=== PATIENT | female | born 1970 | race Caucasian/White ===

== ENCOUNTER 2016-05-05 15:14 | Emergency (ER) | payer MEDICARE, OTHER ==
[2016-05-05 15:34] VITALS: RESP 20
--- NOTE | 2016-05-05 15:52 | ED ---
General Adult HPI - General Chief complaint: Fall Stated complaint: Fall - Rib Pain Time Seen by Provider: 05/05/16 15:42 Source: patient, RN notes reviewed Mode of arrival: ambulatory Limitations: no limitations - History of Present Illness Initial comments: This is a 45-year-old female who presents today with left-sided rib pain after a fall yesterday. Patient states she has epilepsy and had an episode of a drop seizure. Patient states she landed on the left side ribs but denies any head injury or loss of consciousness. Patient is denying any headache, nausea/ vomiting/visual changes since the fall. Patient states she was concerned for rib fracture as she has a history of rib fracture. Patient states the pain is worse with taking a deep breath and with coughing or sneezing. Patient states she is having some shortness of breath. Patient denies any recent fever, chills , chest pain, abdominal pain, diarrhea, back pain, numbness, tingling, hematuria, or visual changes, or any other complaints. - Related Data Home Medications Medication Instructions Recorded Confirmed Beclomethasone Dipropionate [Qvar 1 puff INHALATION RT-BID PRN 03/29/15 07/01/15 80 mcg/puff] Diazepam [Valium] 10 mg PO BID PRN 03/29/15 07/01/15 Hydrocodone/Acetaminophen [[place] 1 tab PO Q6HR PRN 03/29/15 07/01/15 5-325] lamoTRIgine [LaMICtal] 200 mg PO BID 03/29/15 07/01/15 Previous Rx's Medication Instructions Recorded Zonisamide [Zonegran] 300 mg PO HS #30 cap 03/31/15 lamoTRIgine [LaMICtal] 25 mg PO BID #60 tab 03/31/15 Allergies Allergy/AdvReac Type Severity Reaction Status Date / Time albuterol Allergy Rapid Verified 07/01/15 14:30 Heart Rate carbamazepine [From Tegretol] Allergy Rash/Hives Verified 07/01/15 14:30 gabapentin [From Neurontin] Allergy Unknown Verified 07/01/15 14:30 lacosamide [From Vimpat] Allergy Unknown Verified 07/01/15 14:30 levetiracetam [From Keppra] Allergy Hallucinati Verified 07/01/15 14:30 ons phenobarbital Allergy Rash/Hives Verified 07/01/15 14:30 phenytoin Allergy Rash/Hives Verified 07/01/15 14:30 Review of Systems ROS Statement: Those systems with pertinent positive or pertinent negative responses have been documented in the HPI. ROS Other: All systems not noted in ROS Statement are negative. Past Medical History Past Medical History: Asthma, Seizure Disorder Additional Past Medical History / Comment(s): pneumothorax, MIGRAINES History of Any Multi-Drug Resistant Organisms: None Reported Past Surgical History: Orthopedic Surgery Additional Past Surgical History / Comment(s): chest tube, Oroth surgery on Left kneee two times. Past Psychological History: No Psychological Hx Reported Smoking Status: Former smoker Past Alcohol Use History: None Reported Past Drug Use History: None Reported - Past Family History Brother(s) Additional Family Medical History / Comment(s): cystic fibrosis , at 14 years old General Exam - General Exam Comments Initial Comments: General: The patient is awake and alert, in no distress, and does not appear acutely ill. Neck: The neck is supple, there is no tenderness or JVD. Cardiovascular: There is a regular rate and rhythm. No murmur, rub or gallop is appreciated. Respiratory: Lungs are clear to auscultation, respirations are non-labored, breath sounds are equal. No wheezes, stridor, rales, or rhonchi. Musculoskeletal: Full range of motion, strength 5/5 and Sensation intact. Radial pulses 2+ bilaterally. Neurological: A&O x 3. CN II-XII intact, There are no obvious motor or sensory deficits. Coordination appears grossly intact. Speech is normal. Skin: No ecchymosis noted to the left side ribs. Skin is warm and dry and no rashes or lesions are noted. Psychiatric: Normal mood and affect. Limitations: no limitations Course Vital Signs 05/05/16 15:32 Temperature 97.7 F Pulse Rate 95 Respiratory 20 Rate Blood Pressure 138/76 O2 Sat by Pulse 99 Oximetry Medical Decision Making - Medical Decision Making This is a 45 year old female presents with left-sided rib pain after a fall yesterday. On physical exam lungs are clear to auscultation, breath sounds are equal and nonlabored. Patient is afebrile in the EC, pulse rate 95, respiratory rate 20 and O2 sats are 99%. X-ray's of the left side ribs and chest were done and reviewed showing: #1 normal left ribs. #2 normal chest. Report read by Dr. Penn. Discussed the results with patient. Discussed that the ribs most likely bruised. I discussed the importance of continued deep breaths to prevent any pneumonia or infection. Discussed that patient could receive a short course of norco for pain but patient refused this stating she has ibuprofen at home that will work. Discussed ice to the area. Patient requested an Praveen wrap for a little bit of compression to the ribs. I discussed return parameters. I discussed the patient should follow with PCP in one to 2 days or return to the EC for any worsening symptoms or for any further concerns. Patient and who was also present in the room were receptive to this plan patient will be discharged home. Disposition Clinical Impression: Contusion of rib on left side Disposition: HOME SELF-CARE Condition: Good Instructions: Rib Contusion (ED) Additional Instructions: Please ice the area. Please use [id number] Tylenol and/or Motrin as needed for any pain. Please continue to take deep breaths to prevent any pneumonia. Please follow-up with family doctor in the next 2 days of symptoms have not improved. Please return to emergency room if the symptoms increase or worsen or for any other concerns. Referrals: Cresencio Murillo DO [Primary Care Provider] - 1-2 days Time of Disposition: 16:35
--- NOTE | 2016-05-05 16:14 | XR ---
EXAMINATION TYPE: XR ribs LT w pa chest xray DATE OF EXAM: 05/05/2016 4:07 PM COMPARISON: Chest x-ray 03/29/2015 HISTORY: Pain TECHNIQUE: Frontal chest and 2 views left RIBS FINDINGS: No acute fractures are evident. No pneumothorax is evident. IMPRESSION: 1. Normal left ribs. 2. Normal chest
[2016-05-05 16:39] VITALS: BP 138/78; PULSE 84; TEMP 98.2
== END 2016-05-05 16:39 | disposition home or self-care (01) ==
LOC: EC 15:14
DX: S20.212A Contusion of left front wall of thorax, initial encounter (principal); W19.XXXA Unspecified fall, initial encounter; G40.909 Epilepsy, unspecified, not intractable, without status epilepticus; J45.909 Unspecified asthma, uncomplicated; G43.909 Migraine, unspecified, not intractable, without status migrainosus; Z79.899 Other long term (current) drug therapy; Z88.8 Allergy status to other drugs, medicaments and biological substances; Z87.891 Personal history of nicotine dependence
CPT/HCPCS: 99284

== ENCOUNTER 2016-06-29 18:39 | Emergency (ER) | payer OTHER ==
--- NOTE | 2016-06-29 19:14 | ED ---
General Adult HPI - General Chief complaint: Head Injury Stated complaint: Fall Time Seen by Provider: 06/29/16 19:03 Source: patient, family, RN notes reviewed, old records reviewed Mode of arrival: wheelchair Limitations: no limitations - History of Present Illness Initial comments: Chief complaint history of present illness a 46-year-old female with a history of seizures. 3 nights ago she slipped and fell bumping the back of her head. Her significant other states that she was probably unconscious for approximately 1 minute nausea since then but no vomiting. No seizure activity. Mild dizziness when she stands. - Related Data Home Medications Medication Instructions Recorded Confirmed Diazepam [Valium] 10 mg PO DAILY PRN 03/29/15 06/29/16 lamoTRIgine [LaMICtal] 200 mg PO BID 03/29/15 06/29/16 Aspirin/Acetaminophen/Caffeine 1 - 2 tab PO DAILY PRN 06/29/16 06/29/16 [Excedrin Migraine Caplet] Brivaracetam [Briviact] 25 mg PO HS 06/29/16 06/29/16 Zonisamide [Zonegran] 200 mg PO BID 06/29/16 06/29/16 Previous Rx's Medication Instructions Recorded Ondansetron Odt [Zofran ODT] 4 mg PO Q8HR PRN #5 tab 06/29/16 Allergies Allergy/AdvReac Type Severity Reaction Status Date / Time albuterol Allergy Rapid Verified 06/29/16 19:36 Heart Rate carbamazepine [From Tegretol] Allergy Rash/Hives Verified 06/29/16 19:36 gabapentin [From Neurontin] Allergy Unknown Verified 06/29/16 19:36 lacosamide [From Vimpat] Allergy Unknown Verified 06/29/16 19:36 levetiracetam [From Keppra] Allergy Hallucinati Verified 06/29/16 19:36 ons phenobarbital Allergy Rash/Hives Verified 06/29/16 19:36 phenytoin Allergy Rash/Hives Verified 06/29/16 19:36 Review of Systems ROS Statement: Those systems with pertinent positive or pertinent negative responses have been documented in the HPI. Review of systems. Minimal to mild headache. No visual acuity changes mild nausea when she moves too quickly. No vomiting. No fever. No neck pain. No chest pain shortness breath GI/ problems no neuro deficits. All systems were otherwise reviewed. Past medical problems asthma, seizure disorder, previous pneumothorax. Surgeries knee arthroscopy, chest tube. Family history none, no cancers. Patient denies smoking denies drinking. She has ALLERGIES to albuterol, carbamazepine, gabapentin, glucose of mild. Keppra, phenobarbital and phenytoin. ROS Other: All systems not noted in ROS Statement are negative. Past Medical History Past Medical History: Asthma, Seizure Disorder Additional Past Medical History / Comment(s): pneumothorax, MIGRAINES, uterine fibroids History of Any Multi-Drug Resistant Organisms: None Reported Past Surgical History: Orthopedic Surgery Additional Past Surgical History / Comment(s): chest tube, Oroth surgery on Left kneee two times. Past Psychological History: No Psychological Hx Reported Smoking Status: Former smoker Past Alcohol Use History: None Reported Past Drug Use History: None Reported - Past Family History Brother(s) Additional Family Medical History / Comment(s): cystic fibrosis , at 14 years old General Exam - General Exam Comments Initial Comments: General: The patient is awake and alert, in no distress, and does not appear acutely ill. Complains of mild nausea. She did bump her head 3 nights ago. Mild dizziness. Typical postconcussion type complaints. Vital signs show temperature 97.2 pulse 98 respiratory rate 18 pulse ox 90% room air blood pressure 130/58. Mildly elevated systolic noted. Patient will be referred back to her family physician in the next 1-4 weeks. Eye: Pupils are equal, round and reactive to light, extra-ocular movements are intact ; there is normal conjunctiva bilaterally. No signs of icterus. Ears, nose, mouth and throat: There are moist mucous membranes and no oral lesions. Neck: The neck is supple, there is no tenderness . Cardiovascular: There is a regular rate and rhythm. No murmur, rub or gallop is appreciated. Respiratory: Lungs are clear to auscultation, respirations are non-labored, breath sounds are equal. No wheezes, stridor, rales, or rhonchi. Gastrointestinal: Soft, non-distended, non-tender abdomen without masses or organomegaly noted. There is no rebound or guarding present. No CVA tenderness. Bowel sounds are unremarkable. Back: No back pain. Musculoskeletal: Normal ROM, no tenderness, There is no pedal edema. There is no calf tenderness or swelling. Sensation intact. Pulses equal bilaterally 2+. Neurological: CN II-XII intact, There are no obvious motor or sensory deficits. Coordination appears grossly intact. Speech is normal. No focal or lateralizing findings. Skin: Skin is warm and dry and no rashes or lesions are noted. Limitations: no limitations Course Vital Signs 06/29/16 18:53 Temperature 97.2 F L Pulse Rate 98 Respiratory 18 Rate Blood Pressure 130/58 O2 Sat by Pulse 98 Oximetry Medical Decision Making - Medical Decision Making CT of the brain was done and reviewed by radiologist's final impression is negative nonenhanced CT of the brain. As read by Dr. Glaser. The patient be discharged home with instructions for postconcussion syndrome. Advised to use Tylenol or ibuprofen for discomfort. Follow-up with family physician as needed. Disposition Clinical Impression: Concussion with loss of consciousness Disposition: HOME SELF-CARE Condition: Stable Instructions: Concussion (ED), Post Concussion Syndrome (ED) Additional Instructions: Use Zofran to control nausea. Follow-up with family physician. Use Tylenol or ibuprofen for pain. Prescriptions: Ondansetron Odt [Zofran ODT] 4 mg PO Q8HR PRN #5 tab PRN Reason: Nausea Time of Disposition: 20:19
--- NOTE | 2016-06-29 19:38 | CT ---
EXAMINATION TYPE: CT brain wo con DATE OF EXAM: 06/29/2016 7:33 PM COMPARISON: 03/29/2015 HISTORY: PT STATES OF RAMIREZ AFTER FALL INURY X2 DAYS AGO. CT DLP: 980.5 mGycm Automated exposure control for dose reduction was used. FINDINGS: Ventricles and sulci appear normal. There is no mass effect nor midline shift. There is no sign of in tracranial hemorrhage. The calvarium is intact. IMPRESSION: Negative unenhanced head CT scan.
[2016-06-29 20:26] VITALS: BP 128/69; PULSE 69; RESP 16; TEMP 97.1
== END 2016-06-29 20:25 | disposition home or self-care (01) ==
LOC: EC 18:39
DX: S06.0X1A Concussion with loss of consciousness of 30 minutes or less, initial encounter (principal); W01.10XA Fall on same level from slipping, tripping and stumbling with subsequent striking against unspecified object, initial encounter; Z79.82 Long term (current) use of aspirin; Z79.899 Other long term (current) drug therapy; G40.909 Epilepsy, unspecified, not intractable, without status epilepticus; Z88.8 Allergy status to other drugs, medicaments and biological substances; Z87.891 Personal history of nicotine dependence
CPT/HCPCS: 70450; 99284

== ENCOUNTER → 2016-09-30 | Outpatient (CLI) | payer OTHER ==
--- NOTE | 2016-09-30 16:37 | MR ---
EXAMINATION TYPE: MR cspine/lspine wo con DATE OF EXAM ORDERED: 09/30/2016 4:11 PM HISTORY: M54.2 CERVICALGIA M54.5 LBP. TECHNOLOGIST HISTORY AT TIME OF EXAM: Neck and Low back pain, Headaches COMPARISON: TECHNIQUE: Multiplanar, multiecho imaging of the cervical spine was obtained without contrast on a 1 .5 reece magnet. FINDINGS: Prevertebral soft tissues are normal. There is mild loss of the normal cervical lordosis. Vertebral body height and alignment are maintaine d. Atlantoaxial relationships are normal. There are normal craniocervical junction. Cord signal is normal. At C2-C3, no definite abnormality is seen. At C3-C4, is mild disc space loss and hypertrophic spondylosis anteriorly. There is bilateral interve rtebral foraminal narrowing. There is a broad-based disc displacement. This is mildly deforming the t hecal sac with cord contact but without compression. The facet and uncovertebral joints are unremarka ble. At C4-C5, the intervertebral foramina are well maintained. There is no significant compressive discop athy. The facet and uncovertebral joints are unremarkable. At C5-C6, the intervertebral foramina are well maintained. There is a minimal concentric disc displac ement. The facet and uncovertebral joints are unremarkable. At C6-C7, there is mild disc space loss. There is mild, bilateral intervertebral foraminal narrowing. There is a mild, broad-based disc displacement deforming the thecal sac without cord contact. The fa cet and uncovertebral joints are unremarkable. At C7-T1, no definite abnormality is seen. IMPRESSION: 1. MILD, DIFFUSE DEGENERATIVE DISC DISEASE. 2. BROAD-BASED DISC DISPLACEMENT, C3-4 DEFORMING THE THECAL SAC WITH CORD CONTACT BUT WITHOUT ROSAURA THALIA. 3. MULTILEVEL INTERVERTEBRAL FORAMINAL NARROWING. LUMBAR SPINE: Paraspinal soft tissues are normal. Vertebral body height and alignment are maintained. Cord signal is maintained. The conus ends at the level of the mid body of L2. T12-L1, no definite abnormality is seen. At L1-2, there is an anterior bridging osteophyte. The intervertebral foramina are well maintained. T here is mild hypertrophic change in the facets. At L2-3, the intervertebral foramina are reasonably well-maintained. There is no significant compress nelsy discopathy. There is hypertrophic change and capsulitis within the facets. At L3-4, the intervertebral foramina appear well maintained. There is a broad-based disc displacement effacing the thecal sac. There is mild hypertrophic change in the facets. At L4-5, the intervertebral foramina appear well maintained. There is a broad-based disc displacement effacing the thecal sac. This hypertrophic change within the facets. There is mild trefoiling of the thecal sac. There is mild left-sided lateral recess stenosis. L5-S1, there is mild hypertrophic change in the facets. At L3-4, IMPRESSION: 1. DIFFUSE DEGENERATIVE DISC DISEASE. 2. DIFFUSE FACET ARTHROPATHY. 3. MILD TREFOILING OF THE THECAL SAC AND LEFT LATERAL RECESS STENOSIS, L4-5
== END | disposition home or self-care (01) ==
LOC: RADMRIMAIN 15:16
PROVIDERS: ATTEND Nurse Practitioner Acute Care
DX: M48.06 Spinal stenosis, lumbar region (principal); M51.36 Other intervertebral disc degeneration, lumbar region; M46.96 Unspecified inflammatory spondylopathy, lumbar region; M50.30 Other cervical disc degeneration, unspecified cervical region; M50.21 Other cervical disc displacement, high cervical region; M99.71 Connective tissue and disc stenosis of intervertebral foramina of cervical region; Z88.8 Allergy status to other drugs, medicaments and biological substances
CPT/HCPCS: 72141; 72148

== ENCOUNTER → 2017-04-23 | Outpatient (CLI) | payer OTHER ==
[2017-04-24 15:34] LABS: CH 28.5; CHCM 30.8; HCT 42.6 % (34.0-46.0); HDW 2.45; HGB 13.4 gm/dL (11.4-16.0); Hypochromasia Slight; MCH 29.4 pg (25.0-35.0); MCHC 31.5 g/dL (31.0-37.0); MCV 93.2 fL (80.0-100.0); Mean Platelet Volume 9.1; RBC 4.58 m/uL (3.80-5.40); RDW 14.7 % (11.5-15.5); WBC 6.7 k/uL (3.8-10.6)
[2017-04-24 16:43] LABS: ALT 30 U/L (9-52); AST 24 U/L (14-36); Alkaline Phosphatase 100 U/L (38-126); Anion Gap 12 mmol/L; Blood Urea Nitrogen 19 mg/dL (7-17); Calcium 10.1 mg/dL (8.4-10.2); Carbon Dioxide 26 mmol/L (22-30); Chloride 106 mmol/L (98-107); Cholesterol 199 mg/dL (<200); Glucose 97 mg/dL (74-99); HDL Cholesterol 74 mg/dL (40-60); Non-African American GFR(MDRD) 59 (>60 ml/min/1.73 sqM); Sodium 144 mmol/L (137-145); Total Bilirubin 0.5 mg/dL (0.2-1.3); Total Protein 7.2 g/dL (6.3-8.2)
[2017-04-24 17:03] LABS: Appearance,Urine Turbid (Clear); PH, Urine 5.5 (5.0-8.0); Protein,Urine 1+ (Negative); Specific Gravity,Urine 1.023 (1.001-1.035)
[2017-04-24 17:04] LABS: Bilirubin,Urine Negative (Negative); Glucose,Urine (UA) Negative (Negative); Ketones,Urine Negative (Negative); Leukocyte Esterase,Urine Large (Negative); Nitrite,Urine Negative (Negative); Squamous Epithelial Cell,Urine 78 /hpf (0-4); UA Billing (MACRO vs. MICRO) MICRO; WBC,Urine 42 /hpf (0-5)
[2017-04-24 17:05] LABS: Amorphous Sediment,Urine Occasional /hpf; Bacteria,Urine Rare /hpf; Calcium Carbonate Crystals,Ur Moderate /hpf; Mucus,Urine Many /hpf
== END | disposition home or self-care (01) ==
LOC: LABWHC1 11:11
PROVIDERS: ATTEND Family Medicine
DX: Z00.00 Encounter for general adult medical examination without abnormal findings (principal)
CPT/HCPCS: 36415; 80053; 80061; 81001; 82306; 84443; 85027

== ENCOUNTER → 2017-07-08 | Outpatient (CLI) | payer MEDICARE | END | disposition home or self-care (01) | LOC: LABWHC1 13:42 | PROVIDERS: ATTEND Psychiatry & Neurology Neurology | DX: Z53.9 Procedure and treatment not carried out, unspecified reason (principal) ==

== ENCOUNTER → 2017-07-09 | Outpatient (CLI) | payer MEDICARE ==
[2017-07-09 17:04] LABS: ALT 26 U/L (9-52); AST 24 U/L (14-36); Albumin 4.3 g/dL (3.5-5.0); Alkaline Phosphatase 102 U/L (38-126); Anion Gap 12 mmol/L; Blood Urea Nitrogen 17 mg/dL (7-17); Carbon Dioxide 28 mmol/L (22-30); Chloride 105 mmol/L (98-107); Glucose 102 mg/dL (74-99); Sodium 145 mmol/L (137-145); Total Bilirubin 0.4 mg/dL (0.2-1.3); Total Protein 7.5 g/dL (6.3-8.2)
== END | disposition home or self-care (01) ==
LOC: LABWHC1 15:34
PROVIDERS: ATTEND Nurse Practitioner Acute Care
DX: E55.9 Vitamin D deficiency, unspecified (principal); M62.838 Other muscle spasm
CPT/HCPCS: 36415; 80053; 82306

== ENCOUNTER 2018-05-25 16:17 | Emergency (ER) | payer MEDICARE, OTHER ==
[2018-05-25 16:46] VITALS: RESP 18
[2018-05-25] MEDS ORDERED: ZONISAMIDE 100 MG CAP PO STA (18:46)
[2018-05-25] MEDS ORDERED: lamoTRIgine 100 MG TAB PO STA (18:46)
--- NOTE | 2018-05-25 18:48 | ED ---
General Adult HPI - General Chief complaint: Headache Stated complaint: off epilepsy meds, migraine, seizures Time Seen by Provider: 05/25/18 18:05 Source: patient Mode of arrival: ambulatory Limitations: no limitations - History of Present Illness Initial comments: 48-year-old female patient presents to the emergency department today requesting medication refill. Patient states that she has been out of her Lamictal and Zonegran for the last week. Patient states she's been having increasing frequency of her migraine headaches. She has also been having "drop seizures". States that her body will suddenly jerk him until he can electric shock is nontender and she will fall. She denies hitting her head or losing consciousness during any of these falls. States that these occur when she does not have her medication. 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 States that they want $900 to fill the prescriptions. Patient denies any current headache. States her last seizure was yesterday. She denies any recent illness. Patient denies any recent rash, fever, chills, shortness breath, chest pain, abdominal pain, nausea, vomiting, diarrhea, constipation, back pain, numbness, tingling, dizziness, weakness, hematuria, dysuria, urinary urgency, urinary frequency, or any other complaints. - Related Data Home Medications Medication Instructions Recorded Confirmed Diazepam [Valium] 10 mg PO DAILY PRN 03/29/15 05/25/18 Brivaracetam [Briviact] 25 mg PO HS 06/29/16 05/25/18 Zonisamide [Zonegran] 200 mg PO BID 06/29/16 05/25/18 lamoTRIgine [LaMICtal] 100 mg PO BID 05/25/18 05/25/18 Allergies Allergy/AdvReac Type Severity Reaction Status Date / Time albuterol Allergy Rapid Verified 05/25/18 18:09 Heart Rate carbamazepine [From Tegretol] Allergy Rash/Hives Verified 05/25/18 18:09 gabapentin [From Neurontin] Allergy Unknown Verified 05/25/18 18:09 lacosamide [From Vimpat] Allergy Unknown Verified 05/25/18 18:09 levetiracetam [From Keppra] Allergy Hallucinati Verified 05/25/18 18:09 ons phenobarbital Allergy Rash/Hives Verified 05/25/18 18:09 phenytoin Allergy Rash/Hives Verified 05/25/18 18:09 Review of Systems ROS Statement: Those systems with pertinent positive or pertinent negative responses have been documented in the HPI. ROS Other: All systems not noted in ROS Statement are negative. Past Medical History Past Medical History: Asthma, Seizure Disorder Additional Past Medical History / Comment(s): pneumothorax, MIGRAINES, uterine fibroids History of Any Multi-Drug Resistant Organisms: None Reported Past Surgical History: Orthopedic Surgery Additional Past Surgical History / Comment(s): chest tube, Oroth surgery on Left kneee two times. Past Psychological History: No Psychological Hx Reported Smoking Status: Former smoker Past Alcohol Use History: None Reported Past Drug Use History: None Reported - Past Family History Brother(s) Additional Family Medical History / Comment(s): cystic fibrosis , at 14 years old General Exam Limitations: no limitations General appearance: alert, in no apparent distress, other (This is a well- developed, well-nourished adult female patient in no acute distress. Vital signs upon presentation are temperature 98.2F, pulse 84, respirations 18, blood pressure 112/81, pulse ox 100% on room air) Eye exam: Present: normal appearance, PERRL, EOMI. Absent: scleral icterus, conjunctival injection, nystagmus, periorbital swelling ENT exam: Present: normal exam, normal oropharynx, mucous membranes moist Respiratory exam: Present: normal lung sounds bilaterally. Absent: respiratory distress, wheezes, rales, rhonchi, stridor Cardiovascular Exam: Present: regular rate, normal rhythm, normal heart sounds. Absent: systolic murmur, diastolic murmur, rubs, gallop, clicks GI/Abdominal exam: Present: soft, normal bowel sounds. Absent: distended, tenderness, guarding, rebound, rigid Neurological exam: Present: alert, oriented X3, CN II-XII intact, other ( Strength in all 4 extremities is 5/5.) Psychiatric exam: Present: normal affect, normal mood Skin exam: Present: warm, dry, intact, normal color. Absent: rash Course Vital Signs 05/25/18 05/25/18 16:41 19:27 Temperature 98.2 F 98.5 F Pulse Rate 84 77 Respiratory 18 18 Rate Blood Pressure 112/81 110/84 O2 Sat by Pulse 97 Oximetry Medical Decision Making - Medical Decision Making 48-year-old female patient presented to the emergency department today requesting medication refill. Patient states she lost prescription coverage and was unable to fill her Zonegran or Lamictal prescriptions because it would cause her $900. Patient states that she has had increasing frequency of her migraine headaches and seizures without the medication. I was able to contact the pharmacy and obtain a discounted cross for a week's supply for both of these medications. He did discuss this with the patient, states that she will be able to purchase these tomorrow. We did give a dose of both medications here in the emergency department. She is instructed to follow-up with her primary care physician for recheck as soon as possible. Return parameters discussed in detail. She verbalizes understanding and agrees this plan. Disposition Clinical Impression: Medication refill Disposition: HOME SELF-CARE Condition: Good Instructions (If sedation given, give patient instructions): Medicine Refill ( ED) Additional Instructions: Follow up with your primary care physician for recheck in 1-2 days. Return to the emergency department immediately for any new, worsening, or concerning symptoms. Is patient prescribed a controlled substance at d/c from ED?: No Referrals: Cresencio Murillo DO [Primary Care Provider] - 1-2 days Time of Disposition: 18:48
[2018-05-25 19:33] VITALS: BP 110/84; PULSE 77; TEMP 98.5
== END 2018-05-25 19:27 | disposition home or self-care (01) ==
LOC: EC 16:17
DX: Z76.0 Encounter for issue of repeat prescription (principal); G43.909 Migraine, unspecified, not intractable, without status migrainosus; G40.909 Epilepsy, unspecified, not intractable, without status epilepticus; Z79.899 Other long term (current) drug therapy; Z88.8 Allergy status to other drugs, medicaments and biological substances; Z87.891 Personal history of nicotine dependence
CPT/HCPCS: 99283

== ENCOUNTER → 2018-09-01 | Outpatient (CLI) | payer MEDICARE, OTHER ==
--- NOTE | 2018-09-02 12:19 | MM ---
Reason for exam: screening (asymptomatic). Last mammogram was performed 4 years and 7 months ago. History: Family history of breast cancer in maternal aunt. Physical Findings: A clinical breast exam by your physician is recommended on an annual basis and results should be correlated with mammographic findings. MG Screening Mammo w CAD Bilateral CC and MLO view(s) were taken. Prior study comparison: January 30, 2014, bilateral MG screening mammo w CAD. January 05, 2013, bilateral digital screening mammo w/CAD. The breast tissue is almost entirely fat. Stable benign calcifications. No significant changes when compared with prior studies. ASSESSMENT: Benign, BI-RAD 2 RECOMMENDATION: Routine screening mammogram of both breasts in 1 year.
== END | disposition home or self-care (01) ==
LOC: RADMAMWWP 09:57
PROVIDERS: ATTEND Obstetrics & Gynecology
DX: Z12.31 Encounter for screening mammogram for malignant neoplasm of breast (principal)
CPT/HCPCS: 77067

== ENCOUNTER 2018-11-14 11:58 | Emergency (ER) | payer MEDICARE, OTHER ==
[2018-11-14 12:06] VITALS: BP 123/82; PULSE 81; RESP 18; TEMP 98.5
--- NOTE | 2018-11-14 12:19 | ED ---
Upper Extremity HPI - General Chief Complaint: Extremity Injury, Upper Stated Complaint: Hand injury Time Seen by Provider: 11/14/18 12:08 Source: patient Mode of arrival: ambulatory Limitations: no limitations - History of Present Illness Initial Comments: Patient is a 48-year-old female presents emergency Department with complaints of pain in her left hand times one day. Patient states she tripped and fell onto her left hand yesterday. Patient now has bruising, swelling, tenderness of the left ring finger and into the left hand. Patient denies any other injuries from her fall. No other complaints at this time. Patient is left-hand dominant. - Related Data Home Medications Medication Instructions Recorded Confirmed Brivaracetam [Briviact] 25 mg PO BID 06/29/16 11/14/18 lamoTRIgine 200 mg PO HS 11/14/18 11/14/18 Allergies Allergy/AdvReac Type Severity Reaction Status Date / Time carbamazepine [From Tegretol] Allergy Rash/Hives Verified 11/14/18 12:31 gabapentin [From Neurontin] Allergy Unknown Verified 11/14/18 12:31 lacosamide [From Vimpat] Allergy Unknown Verified 11/14/18 12:31 phenobarbital Allergy Rash/Hives Verified 11/14/18 12:31 phenytoin Allergy Rash/Hives Verified 11/14/18 12:31 albuterol AdvReac Rapid Verified 11/14/18 12:31 Heart Rate levetiracetam [From Keppra] AdvReac Hallucinati Verified 11/14/18 12:31 ons Review of Systems ROS Statement: Those systems with pertinent positive or pertinent negative responses have been documented in the HPI. ROS Other: All systems not noted in ROS Statement are negative. Past Medical History Past Medical History: Asthma, Seizure Disorder Additional Past Medical History / Comment(s): pneumothorax, MIGRAINES, uterine fibroids History of Any Multi-Drug Resistant Organisms: None Reported Past Surgical History: Orthopedic Surgery Additional Past Surgical History / Comment(s): chest tube, Oroth surgery on Left kneee two times. Past Psychological History: No Psychological Hx Reported Smoking Status: Former smoker Past Alcohol Use History: None Reported Past Drug Use History: None Reported - Past Family History Brother(s) Additional Family Medical History / Comment(s): cystic fibrosis , at 14 years old General Exam - General Exam Comments Initial Comments: GENERAL: Well-appearing, well-nourished and in no acute distress. HEAD: Atraumatic, normocephalic. EYES: Pupils equal round and reactive to light, extraocular movements intact, sclera anicteric, conjunctiva are normal. ENT: Nares patent, oropharynx clear without exudates. Moist mucous membranes. NECK: Normal range of motion, supple without lymphadenopathy or JVD. LUNGS: Breath sounds clear to auscultation bilaterally and equal. No wheezes rales or rhonchi. HEART: Regular rate and rhythm without murmurs, rubs or gallops. : Deferred EXTREMITIES: Patient has pain with palpation of the left ring finger and left fourth metacarpal. There is bruising and swelling of the same area. Patient has normal range of motion of the left wrist and fingers. NEUROLOGICAL: Cranial nerves II through XII grossly intact. Normal speech, normal gait. PSYCH: Normal mood, normal affect. SKIN: Warm, Dry, normal turgor, no rashes or lesions noted. Limitations: no limitations Course Vital Signs 11/14/18 12:04 Temperature 98.5 F Pulse Rate 81 Respiratory 18 Rate Blood Pressure 123/82 O2 Sat by Pulse 98 Oximetry Medical Decision Making - Medical Decision Making Patient is a 48-year-old female with complaints of pain, swelling, and bruising of the left fourth finger after falling on her hand yesterday. Patient is left- hand dominant. X-ray of left hand show no fracture or dislocation on the reading however there appears to be a fracture line of the left 4th proximal phalanx, nondisplaced. Patient was counseled on this finding. Patient's fourth finger was yohan taped to her pinky finger and will follow up with orthopedics in 1-2 weeks. Patient and are in agreement with this plan of care. Return parameters were discussed with the patient she verbalized understanding. Case discussed with Dr. Echavarria. Disposition Clinical Impression: Fracture of proximal phalanx of left ring finger Disposition: HOME SELF-CARE Condition: Stable Instructions (If sedation given, give patient instructions): Finger Fracture (ED) Additional Instructions: Please return to the Emergency Department if symptoms worsen or any other concerns. The yohan tape can be removed for showers. Follow up with orthopedics and 1-2 weeks. Is patient prescribed a controlled substance at d/c from ED?: No Referrals: Cresencio Murillo DO [Primary Care Provider] - 1-2 days Hoang Paige MD [Medical Doctor] - 1-2 days
--- NOTE | 2018-11-14 12:42 | XR ---
Left hand HISTORY: Swelling and pain, trauma yesterday 3 views of the left hand Bone mineralization, joint spaces and alignment are maintained. There is soft tissue swelling present . Questionable lucency along the medial aspect of the left wrist within the soft tissues although thi s may be artifactual. IMPRESSION: No fracture or dislocation evident, follow-up as indicated. Additional findings above.
== END 2018-11-14 13:05 | disposition home or self-care (01) ==
LOC: EC 11:58
DX: S62.645A Nondisplaced fracture of proximal phalanx of left ring finger, initial encounter for closed fracture (principal); G40.909 Epilepsy, unspecified, not intractable, without status epilepticus; Z87.891 Personal history of nicotine dependence; Z79.899 Other long term (current) drug therapy; Z88.8 Allergy status to other drugs, medicaments and biological substances; W01.0XXA Fall on same level from slipping, tripping and stumbling without subsequent striking against object, initial encounter; Y92.009 Unspecified place in unspecified non-institutional (private) residence as the place of occurrence of the external cause
CPT/HCPCS: 99283

== ENCOUNTER → 2019-04-12 | Outpatient (CLI) | payer MEDICARE ==
[2019-04-12 13:26] LABS: Basophils % (A) 0 %; Eosinophils # (A) 0.2 k/uL (0-0.7); Eosinophils % (A) 3 %; HCT 43.9 % (34.0-46.0); HGB 13.9 gm/dL (11.4-16.0); Lymphocytes # (A) 1.7 k/uL (1.0-4.8); Lymphocytes % (A) 30 %; MCH 28.7 pg (25.0-35.0); MCHC 31.6 g/dL (31.0-37.0); MCV 90.9 fL (80.0-100.0); Mean Platelet Volume 7.5; Monocytes # (A) 0.3 k/uL (0-1.0); Monocytes % (A) 6 %; Neutrophils # (A) 3.5 k/uL (1.3-7.7); Neutrophils % (A) 60 %; Platelet Count 195 k/uL (150-450); RBC 4.83 m/uL (3.80-5.40); RDW 13.5 % (11.5-15.5); WBC 5.8 k/uL (3.8-10.6)
[2019-04-12 18:34] LABS: % Iron Saturation 34.6 (12.00-45.00); Albumin 4.5 g/dL (3.80-4.90); Albumin/Globulin Ratio 1.96 (1.60-3.17); Anion Gap 5.6 mmol/L (4.00-12.00); BUN/Creat Ratio 24.44 Ratio (12.00-20.00); Calcium 9.8 mg/dL (8.7-10.3); Carbon Dioxide 29.4 mmol/L (21.6-31.8); Globulin 2.3 g/dL (1.6-3.3); Non-African American GFR(CKD) 75.1 (60.0-200.0); Potassium 4.5 mmol/L (3.5-5.5); Total Bilirubin 0.5 mg/dL (0.2-1.2); Total Protein 6.8 g/dL (6.2-8.2)
[2019-04-12 19:33] LABS: T4, Free (Free Thyroxine) 0.9 ng/dL (0.80-1.80)
== END | disposition home or self-care (01) ==
LOC: LABWHC1 12:40
PROVIDERS: ATTEND Psychiatry & Neurology Neurology
DX: Z51.81 Encounter for therapeutic drug level monitoring (principal); E55.9 Vitamin D deficiency, unspecified; R53.82 Chronic fatigue, unspecified; Z79.899 Other long term (current) drug therapy
CPT/HCPCS: 36415; 80053; 82306; 82607; 83540; 83550; 84207; 84439; 84443; 84481; 85025

== ENCOUNTER → 2019-11-29 | Outpatient (CLI) | payer MEDICARE ==
--- NOTE | 2019-11-29 19:06 | MR ---
EXAMINATION TYPE: MR cspine/lspine wo con DATE OF EXAM: 11/29/2019 COMPARISON: Prior exam 09/30/2016 HISTORY: Neck pain, headaches, lower back pain TECHNIQUE: Multiplanar, multisequence imaging of the cervical and lumbar spine is performed without I V contrast. FINDINGS: Cervical spine MRI: Sizable lipoma is present over the dorsal aspect of the mid to lower thoracic spi ne similar to prior exam. There is multilevel spondylosis as on prior exam, endplate discogenic marrow signal changes are prese nt with associated loss of disc height signal at intervertebral levels. Cervical vertebral bodies alfredo w stable height, alignment, and bone marrow signal. Cervical cord signal is maintained. There is a mi ld spinal curvature present extending to the thoracic spine. C2-3: Unremarkable C3-4: Uncovertebral joint hypertrophy and facet arthropathy result in bilateral foraminal encroachmen t. Posterior extension endplate disc complex causes anterior mass effect on the thecal sac. Only mild spinal stenosis. C4-5: Small posterior disc bulge is noted. No foraminal encroachment or central stenosis C5-6: Posterior eccentric disc bulge present in the left paracentral location causes minimal anterior mass effect on the thecal sac. Suspect some minimal foraminal encroachment left greater than right C6-7: Posterior broad-based disc bulge causes mild anterior mass effect on the thecal sac. There is b ilateral foraminal encroachment. No significant central stenosis C7-T1: No significant foraminal encroachment or central stenosis, no disc herniation. IMPRESSION: Degenerative disc disease is similar to prior exam. Additional findings above. Lumbar spine MRI: Sagittal images of the lumbar spine show vertebral body heights and alignment to appear stable. The i ntervertebral discs demonstrate stable heights and hydration. The conus medullaris is normal in posi tion and signal. The bone marrow signal intensity is similar to prior exam, there are endplate disco genic marrow signal changes with multilevel spondylosis, there is no significant spinal stenosis or f oraminal encroachment. Suspect there is a retroaortic left renal vein. Axial images show similar findings. Facet arthropathy changes present at L5-S1. L4-5 also shows some degenerative facet arthropathy changes as does L3-4. IMPRESSION: Stable mild degenerative disc disease, facet arthropathy.
--- NOTE | 2019-11-29 19:10 | MR ---
MR brain without contrast HISTORY: Seizure and headache Multiplanar multisequence imaging through the brain Correlation CT brain 03/29/2015 There is no restricted diffusion. There is no hemorrhage or hydrocephalus. The corpus callosum, pitui tary, cervical medullary junction, cerebellopontine angles are normal. Orbits show symmetric appearan ce. Brain signal is remarkable for small focal subcortical hyperintensity towards the convexity on in version recovery T2-weighted sequences, axial image 26 and also on 25 of questionable clinical signif icance. There are normal vascular flow voids, suspect a dominant right vertebral artery. Mastoid air cells and paranasal sinuses show no definite inflammatory change. IMPRESSION: Nonspecific white matter demyelination. No acute brain abnormality.
== END | disposition home or self-care (01) ==
LOC: RADMRIMAIN 17:14
PROVIDERS: ATTEND Nurse Practitioner Acute Care
DX: M48.02 Spinal stenosis, cervical region (principal); M50.221 Other cervical disc displacement at C4-C5 level; M50.30 Other cervical disc degeneration, unspecified cervical region; M47.812 Spondylosis without myelopathy or radiculopathy, cervical region; M51.36 Other intervertebral disc degeneration, lumbar region; M47.816 Spondylosis without myelopathy or radiculopathy, lumbar region; G37.9 Demyelinating disease of central nervous system, unspecified; Z88.8 Allergy status to other drugs, medicaments and biological substances; Z88.2 Allergy status to sulfonamides
CPT/HCPCS: 70551; 72141; 72148

== ENCOUNTER → 2020-02-07 | Outpatient (CLI) | payer MEDICARE ==
[2020-02-07 12:24] LABS: Basophils % (A) 0 %; Eosinophils # (A) 0.2 k/uL (0-0.7); Eosinophils % (A) 3 %; HCT 43.8 % (34.0-46.0); HGB 13.9 gm/dL (11.4-16.0); Hypochromasia Slight; Lymphocytes # (A) 1.9 k/uL (1.0-4.8); Lymphocytes % (A) 30 %; MCH 29.3 pg (25.0-35.0); MCHC 31.8 g/dL (31.0-37.0); MCV 92.3 fL (80.0-100.0); Monocytes # (A) 0.3 k/uL (0-1.0); Monocytes % (A) 4 %; Neutrophils # (A) 3.8 k/uL (1.3-7.7); Neutrophils % (A) 61 %; Platelet Count 214 k/uL (150-450); RBC 4.75 m/uL (3.80-5.40); RDW 13.6 % (11.5-15.5); WBC 6.2 k/uL (3.8-10.6)
[2020-02-07 22:42] LABS: % Iron Saturation 30.77 (12.00-45.00); African American GFR (CKD) 86.4 (60.0-200.0); Albumin 4.3 g/dL (3.80-4.90); Albumin/Globulin Ratio 1.59 (1.60-3.17); BUN/Creat Ratio 25.56 Ratio (12.00-20.00); Calcium 9.8 mg/dL (8.7-10.3); Globulin 2.7 g/dL (1.6-3.3); Non-African American GFR(CKD) 74.6 (60.0-200.0); Potassium 4.4 mmol/L (3.5-5.5); Total Bilirubin 0.5 mg/dL (0.2-1.2)
[2020-02-07 22:52] LABS: Ferritin 44.2 ng/mL (10.0-291.0)
== END | disposition home or self-care (01) ==
LOC: LABWHC1 11:30
PROVIDERS: ATTEND Nurse Practitioner Acute Care
DX: E55.9 Vitamin D deficiency, unspecified (principal); R53.83 Other fatigue; R56.9 Unspecified convulsions; Z51.81 Encounter for therapeutic drug level monitoring
CPT/HCPCS: 36415; 80053; 82306; 82607; 82728; 83540; 83550; 84207; 84439; 84443; 84466; 84481; 85025

== ENCOUNTER → 2020-09-11 | Outpatient (CLI) | payer MEDICARE, OTHER ==
[2020-09-11 20:14] LABS: Basophils # (A) 0.03 X 10*3/uL (0.00-0.10); Basophils % (A) 0.4 %; Eosinophils # (A) 0.12 X 10*3/uL (0.04-0.35); Eosinophils % (A) 1.8 %; HCT 40.7 % (37.2-46.3); HGB 12.7 g/dL (12.0-15.0); Lymphocytes # (A) 1.93 X 10*3/uL (0.90-5.00); Lymphocytes % (A) 28.6 %; MCH 28.5 pg (27.0-32.0); MCHC 31.2 g/dL (32.0-37.0); MCV 91.3 fL (80.0-97.0); Mean Platelet Volume 11.1 fL (9.5-12.2); Monocytes # (A) 0.52 X 10*3/uL (0.20-1.00); Monocytes % (A) 7.7 %; Neutrophils # (A) 4.14 X 10*3/uL (1.80-7.70); Neutrophils % (A) 61.4 %; Platelet Count 194 X 10*3/uL (140-440); RBC 4.46 X 10*6/uL (4.10-5.20); RDW 13.3 % (11.5-14.5); WBC 6.75 X 10*3/uL (4.50-10.00)
[2020-09-11 23:24] LABS: African American GFR (CKD) 98.9 (60.0-200.0); Albumin/Globulin Ratio 1.74 (1.60-3.17); Anion Gap 6.4 mmol/L (4.00-12.00); BUN/Creat Ratio 27.5 Ratio (12.00-20.00); Calcium 9.5 mg/dL (8.7-10.3); Carbon Dioxide 26.6 mmol/L (21.6-31.8); Globulin 2.3 g/dL (1.6-3.3); Non-African American GFR(CKD) 85.4 (60.0-200.0); Total Bilirubin 0.4 mg/dL (0.2-1.2); Total Protein 6.3 g/dL (6.2-8.2)
== END | disposition home or self-care (01) ==
LOC: LABWHC1 12:13
PROVIDERS: ATTEND Psychiatry & Neurology Neurology
DX: E55.9 Vitamin D deficiency, unspecified (principal); Z51.81 Encounter for therapeutic drug level monitoring; G40.909 Epilepsy, unspecified, not intractable, without status epilepticus
CPT/HCPCS: 36415; 80053; 82306; 82607; 84207; 85025

== ENCOUNTER → 2021-11-07 | Outpatient (CLI) | payer MEDICARE ==
--- NOTE | 2021-11-08 07:19 | MR ---
EXAMINATION TYPE: MR cspine/lspine wo con DATE OF EXAM: 11/07/2021 COMPARISON: Prior MRI cervical and lumbar spine November 29, 2019 HISTORY: Cervicalgia, lumbago TECHNIQUE: Multiplanar, multisequence imaging of the cervical and lumbar spine are performed without IV contrast. FINDINGS: Cervical spine: FINDINGS: Sagittal images of the cervical spine show the craniocervical junction to remain within nor mal limits. The cervical and upper thoracic spinal cord is normal in caliber and signal. Slight grad e 1 retrolisthesis C3 and C4 is redemonstrated. Slight scoliotic curvature is stable. The vertebral body and intravertebral disk heights remain normal. Overall heterogeneity of bone marrow signal inten sity is again seen. Axial images show C2-C3 level to remain within normal limits. Axial images at C3-C4 level demonstrates spondylolisthesis with uncovertebral facet degenerative mckeon ges bilaterally and mild broad-based posterior disc protrusion. There is effacement of the anterior t hecal sac and moderate to advanced bilateral neural foraminal narrowing redemonstrated. Axial images at C4-C5 level and C5-C6 levels remain within normal limits. Axial images at C6-C7 levels show left paracentral spur disc complex effacing anterior lateral thecal sac and causing asymmetric moderate left-sided neural foraminal narrowing. Axial images at C7-T1 levels appear within normal limits. IMPRESSION: Slight scoliotic curvature and multilevel degenerative changes in the cervical spine as d etailed above. No significant degenerative progression from most recent prior MRI Lumbar spine: Sagittal images of the lumbar spine show vertebral body heights and alignment to appear satisfactory. Multilevel disc desiccation but disc space heights are maintained. The conus medullaris remains sta ble in position ending at mid L2 level. No abnormal signal is seen. Small hemangioma posterior T12 le carrie sagittal image 9 redemonstrated. Mild multilevel anterior spurring is again seen. Axial images show T12-L1 level to appear within normal limits. Axial images at L1-L2 level redemonstrate mild broad disc bulge minimally effacing the anterior theca l sac, patent bilateral neural foramina. No significant change from prior. Axial images at L2-L3 level redemonstrate small left paracentral disc protrusion causing mild left-si ded neural foraminal narrowing axial image 18 and sagittal image 7. No significant change from prior. Axial images at L3-L4 through the L5-S1 levels redemonstrate mild to moderate facet degenerative mckeon ges bilaterally. Spinal canal is preserved.. Bilateral neural foramina. Paraspinal muscle bulk is maintained. IMPRESSION: Stable mild multilevel degenerative changes in lumbar spine as detailed above.
== END | disposition home or self-care (01) ==
LOC: RADMRIMAIN 11:00
PROVIDERS: ATTEND Nurse Practitioner Acute Care
DX: M47.816 Spondylosis without myelopathy or radiculopathy, lumbar region (principal); M51.26 Other intervertebral disc displacement, lumbar region; G43.909 Migraine, unspecified, not intractable, without status migrainosus; M50.30 Other cervical disc degeneration, unspecified cervical region
CPT/HCPCS: 72141; 72148

== ENCOUNTER → 2021-11-08 | Outpatient (CLI) | payer MEDICARE ==
--- NOTE | 2021-11-09 01:40 | MR ---
EXAMINATION TYPE: MR brain wo con DATE OF EXAM: 11/08/2021 COMPARISON: 11/29/2019 HISTORY: Migraines, dizziness, hx epilepsy. Multiplanar multiecho imaging of the brain with no contrast. Ventricles have normal size. There is no mass effect or midline shift. No sign of intracranial hemorr sabina. The diffusion images show no evidence of an acute infarct. No evidence of cerebral edema. The T 2 and FLAIR images show fairly normal white matter signal pattern. There is slight increased signal o n the lateral aspect frontal horn of the left lateral ventricle. The brainstem is intact. Corpus lakesha losum is intact. Sella turcica appears normal. No evidence of orbital mass. Cerebellum appears normal . IMPRESSION: Minimal white matter signal changes could be age-related. No evidence of cortical infarct. No adverse change compared to old exam.
== END | disposition home or self-care (01) ==
LOC: RADMRIMAIN 15:26
PROVIDERS: ATTEND Nurse Practitioner Acute Care
DX: G93.89 Other specified disorders of brain (principal); G43.909 Migraine, unspecified, not intractable, without status migrainosus
CPT/HCPCS: 70551

== ENCOUNTER → 2022-12-21 | Outpatient (CLI) | payer MEDICARE ==
--- NOTE | 2022-12-22 08:24 | MM ---
Reason for Exam: Screening (asymptomatic). Last mammogram was performed 4 year(s) and 3 month(s) ago. Patient History: Menarche at age 13. Patient has no children. Perimenopausal. Maternal aunt had breast cancer. Risk Values: Elke 5 year model risk: 1.1%. NCI Lifetime model risk: 8.6%. Prior Study Comparison: 01/05/2013 Bilateral Screening Mammogram, [facility]. 01/30/2014 Bilateral Screening Mammogram, [facility]. 09/01/2018 Bilateral Screening Mammogram, [facility]. Tissue Density: There are scattered fibroglandular densities. Findings: Analyzed By CAD. There is no suspicious group of microcalcifications or new suspicious mass in either breast. Stable benign calcifications within both breasts. Overall Assessment: Benign, BI-RAD 2 Management: Screening Mammogram of both breasts in 1 year. A clinical breast exam by your physician is recommended on an annual basis and results should be correlated with mammographic findings. Note on Elke scores and lifetime risk: 1. A Elke score greater than 3% is considered moderate risk. If this is the case, consider specialist referral to assess eligibility for a risk reducing agent. If overall lifetime risk for the development of breast cancer is 20% or higher, the patient may qualify for future screening with alternating mammogram and breast MRI. Electronically signed and approved by: Krish Kasper D.O.
== END | disposition home or self-care (01) ==
LOC: RADMAMWWP 13:54
PROVIDERS: ATTEND Family Medicine
DX: Z12.31 Encounter for screening mammogram for malignant neoplasm of breast (principal); Z80.3 Family history of malignant neoplasm of breast
CPT/HCPCS: 77067

== ENCOUNTER → 2024-02-14 | Outpatient (CLI) | payer MEDICARE ==
--- NOTE | 2024-02-15 08:16 | MM ---
Reason for Exam: Screening (asymptomatic). Last mammogram was performed 1 year(s) and 2 month(s) ago. Patient History: Menarche at age 13. Patient has no children. Postmenopausal. Maternal aunt had breast cancer. Risk Values: Elke 5 year model risk: 1.2%. NCI Lifetime model risk: 8.5%. Prior Study Comparison: 01/30/2014 Bilateral Screening Mammogram, [facility]. 09/01/2018 Bilateral Screening Mammogram, [facility]. 12/21/2022 Bilateral MG screening mammo w CAD, [facility]. Tissue Density: There are scattered areas of fibroglandular density. Findings: Analyzed By CAD. There is no suspicious group of microcalcifications or new suspicious mass in either breast. Overall Assessment: Benign, BI-RAD 2 Management: Screening Mammogram of both breasts in 1 year. . Patient should continue monthly self-breast exams. A clinical breast exam by your physician is recommended on an annual basis. This exam should not preclude additional follow-up of suspicious palpable abnormalities. Note on Elke scores and lifetime risk: 1. A Elke score greater than 3% is considered moderate risk. If this is the case, consider specialist referral to assess eligibility for a risk reducing agent. 2. If overall lifetime risk for the development of breast cancer is 20% or higher, the patient may qualify for future screening with alternating mammogram and breast MRI. [facility], , 02/15/2024 8:13 AM. Electronically signed and approved by: Merritt Blum M.D. Radiologis
== END | disposition home or self-care (01) ==
LOC: RADMAMWWP 14:19
PROVIDERS: ATTEND Family Medicine
CPT/HCPCS: 77067

== ENCOUNTER → 2024-09-18 | Outpatient (CLI) | payer MEDICARE ==
--- NOTE | 2024-09-18 22:43 | MR ---
EXAMINATION TYPE: MR cspine/lspine wo con DATE OF EXAM: 09/18/2024 COMPARISON: Prior MRI October 2021 HISTORY: Neck pain, Headaches, Low back pain TECHNIQUE: Multiplanar, multisequence imaging of the cervical and lumbar spine are performed without IV contrast. FINDINGS: Cervical spine: FINDINGS: Sagittal images of the cervical spine show the craniocervical junction to remain within nor mal limits. The cervical and upper thoracic spinal cord is normal in caliber and signal. Slight grad e 1 retrolisthesis C3 on C4 is redemonstrated. Slight levoconvex scoliotic curvature centered upper t o mid thoracic spine is redemonstrated. The vertebral body heights remain normal. Mild disc space na rrowing at C3-C4 and C6-C7 level is present. Axial images show C2-C3 level to remain within normal limits. Axial images at C3-C4 level redemonstrates spondylolisthesis with uncovertebral facet degenerative ch anges bilaterally and mild broad-based posterior disc protrusion. There is effacement of the anterior thecal sac and moderate to advanced bilateral neural foraminal narrowing redemonstrated. Axial images at C4-C5 level remain within normal limits. Axial images at C5-C6 level shows a left paracentral disc protrusion mildly effacing the anterior the lakesha sac, bilateral neural foramina remain patent. Axial images at C6-C7 levels show left paracentral spur disc complex effacing anterior lateral thecal sac and causing asymmetric moderate to severe left-sided neural foraminal narrowing. Axial images at C7-T1 levels appear within normal limits. IMPRESSION: Slight scoliotic curvature and multilevel degenerative changes in the cervical spine as d etailed above. Only slight progression from most recent prior MRI noted at C5-C6 and C6-C7 levels. Lumbar spine: Sagittal images of the lumbar spine show vertebral body heights and alignment to remain satisfactory. Multilevel disc desiccation with relative sparing of L5-S1 level is redemonstrated but disc space he ights are maintained. The conus medullaris remains stable in position ending at mid L2 level. No abn ormal signal is seen. Small hemangioma posterior T12 level sagittal image 8 is redemonstrated. Mild m ultilevel anterior spurring is redemonstrated. Axial images show T12-L1 level to remain within normal limits. Axial images at L1-L2 level redemonstrate mild broad disc bulge minimally effacing the anterior theca l sac, patent bilateral neural foramina. No significant change from prior. Axial images at L2-L3 level redemonstrate small left foraminal disc protrusion causing mild left-side d neural foraminal narrowing. No significant change from prior. Axial images at L3-L4 through the L5-S1 levels redemonstrate mild to moderate facet degenerative mckeon ges bilaterally. Mild broad disc bulge at L3-L4 level minimally effaces the anterior thecal sac was S thiago canal is preserved. Bilateral neural foramina are patent. Paraspinal muscle bulk is maintained. Prominent extrarenal pelvis on the left is redemonstrated. IMPRESSION: Mild multilevel degenerative changes in lumbar spine as detailed above with only slight i nterval progression from 2021 MRI noted. [facility], , 09/18/2024 10:40 PM
== END ==
LOC: RADMRIMAIN 21:15
PROVIDERS: ATTEND Psychiatry & Neurology Neurology
DX: M51.360 Other intervertebral disc degeneration, lumbar region with discogenic back pain only (principal); M51.26 Other intervertebral disc displacement, lumbar region; M47.816 Spondylosis without myelopathy or radiculopathy, lumbar region; M47.812 Spondylosis without myelopathy or radiculopathy, cervical region; G43.909 Migraine, unspecified, not intractable, without status migrainosus; R20.8 Other disturbances of skin sensation; H53.8 Other visual disturbances; M50.30 Other cervical disc degeneration, unspecified cervical region; M41.82 Other forms of scoliosis, cervical region; M99.73 Connective tissue and disc stenosis of intervertebral foramina of lumbar region
CPT/HCPCS: 72141; 72148